=== PATIENT | male | born 1965 | race Two or more races ===

== ENCOUNTER 2025-03-20 09:37 | Emergency (ER) | payer SELFPAY ==
[~2025-03-20] VITALS: Ht 175.3 cm; Wt 102.0 kg
[2025-03-20 09:56] VITALS: PULSE 71; RESP 18; O2SAT 98
--- NOTE | 2025-03-20 10:10 | ED.PDOC ---
History of Present Illness HPI Comments 60-year-old male presents to the your with no prior medical history associated with a chief complaint high blood pressure. Patient reports that he worked at [employer] yesterday and was put into a department which she did not like for which he checked his blood pressure before shift and it was at 181 systolic and after shift there was at 198 systolic. Social history of tobacco use, occasional alcohol use, marijuana use. Denies chills, fever, N/V/D, SOB, CP. No other associated symptoms, modifiers, recent injuries or sick contacts present at this time. Chief Complaint: High Blood Pressure Time Seen by MD: 10:05 Primary Care Provider: NONE Reviewed Notes: Nurses Notes, Medications, Allergies Allergies: Coded Allergies: NO KNOWN ALLERGIES (Unverified , 03/20/25) Information Source: Patient Mode of Arrival: Ambulatory Severity: Moderate Timing: Hours Duration: Since onset, Hours Prehospital treatment: None Past Medical History PAST MEDICAL HISTORY: Denies Surgical History: Denies all surgeries Family History Family History: Reviewed,noncontributory to illness, Unknown Social History Smoker: Cigarettes Alcohol: Occasionally Drugs: Marijuana Lives In: Home Constitutional: reports: others (High blood pressure); denies: chills, diaphoresis, fatigue, fever, malaise, sweats, weakness EENTM: denies: blurred vision, double vision, ear bleeding, ear discharge, ear drainage, ear pain, ear ringing, eye pain, eye redness, hearing loss, mouth pain, mouth swelling, nasal discharge, nose bleeding, nose congestion, nose pain, photophobia, tearing, throat pain, throat swelling, voice changes, others Respiratory: denies: cough, hemoptysis, orthopnea, SOB at rest, shortness of breath, SOB with excertion, stridor, wheezing, others Cardiovascular: denies: chest pain, dizzy spells, diaphoresis, Dyspnea on exertion, edema, irregular heart beat, left arm pain, lightheadedness, palpitations, PND, syncope, others Gastrointestinal: denies: abdomen distended, abdominal pain, blood streaked bowels, constipated, diarrhea, dysphagia, difficulty swallowing, hematemesis, melena, nausea, poor appetite, poor fluid intake, rectal bleeding, rectal pain, vomiting, others Genitourinary: denies: burning, dysuria, flank pain, frequency, hematuria, incontinence, penile discharge, penile sore, pain, testicle pain, testicle swelling, urgency, others Neurological: denies: dizziness, fainting, headache, left sided numbness, left sided weakness, numbness, paresthesia, pre-existing deficit, right sided numbness, right sided weakness, seizure, speech problems, tingling, tremors, weakness, others Musculoskeletal: denies: back pain, gout, joint pain, joint swelling, muscle pain, muscle stiffness, neck pain, others Integumetry: denies: bruises, change in color, change in hair/nails, dryness, laceration, lesions, lumps, rash, wounds, others Allergic/Immunocompromised: denies: Difficulty Healing, Frequent Infections, Hives, Itching, others Hematologic/Lymphatic: denies: anemia, blood clots, easy bleeding, easy bruising, swollen glands, others Endocrine: denies: excessive hunger, excessive sweating, excessive thirst, excessive urination, flushing, intolerance to cold, intolerance to heat, unexplained weight gain, unexplained weight loss, others Psychiatric: denies: anxiety, bipolar disorder, depression, hopeless, panic disorder, schizophrenia, sleepless, suicidal, others All Other Systems: Reviewed and Negative Physical Exam General Appearance: Moderate Distress, Normal HEENT: Normal ENT Inspection, Pharynx Normal, TMs Normal Neck: Full Range of Motion, Non-Tender, Normal, Normal Inspection Respiratory: Chest Non-Tender, Lungs Clear, No Accessory Muscle Use, No Respiratory Distress, Normal Breath Sounds Cardiovascular: No Edema, No JVD, No Murmur, No Gallop, Normal Peripheral Pulses, Regular Rate/Rhythm Breast Exam: Deferred Gastrointestinal: No Organomegaly, Non Tender, No Pulsatile Mass, Normal Bowel Sounds, Soft Genitalia: Deferred Pelvic: Deferred Rectal: Deferred Extremities: No calf tenderness, Normal capillary refill, Normal inspection, Normal range of motion, Non-tender, No pedal edema Musculoskeletal : Apperance: Normal Neurologic: Alert, 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 Was a procedure done?: No Differential Dx Considerations may include: Anxiety X-Ray, Labs, Meds, VS Vital Signs Date Time Temp Pulse Resp B/P (MAP) Pulse Ox O2 Delivery O2 Flow Rate FiO2 03/20/25 11:17 98.7 75 16 159/107 (124) 98 98.7 03/20/25 11:17 75 17 97 Room Air 03/20/25 09:56 71 18 98 Room Air* 0 21 03/20/25 09:45 98.4 71 18 158/105 (122) 98 98.4 03/20/25 09:45 98.4 71 18 158/105 (122) 98 98.4 159/102 (121) Current Medications Medications (Trade) Dose Ordered Sig/Amanda Route Start Time Stop Time Status Last Admin Lorazepam (Ativan Tablet) 2 mg ONCE ONCE PO 03/20/25 10:15 03/20/25 10:16 DC 03/20/25 10:16 Patient alert. He has a anxiety. Job related. Blood pressure slightly elevated. Denies history of hypertension. Was given Ativan. Blood pressure continues to be elevated even after Ativan. Was given prescription of lisinopril. Explained to the patient on exercise diet. Was told to follow up with his primary care physician. Was told to come back if there is any problem. Time of 1ST Reevaluation: 10:35 Reevaluation 1ST: Improved Patient Education/Counseling: Diagnosis, Treatment, Prognosis Family Education/Counseling: No Family Present SEPSIS Sepsis Screen Date sepsis recognized/suspect: Mar 20, 2025 Time Sepsis recognized/suspect: 944 Recent Procedure: No On Antibiotic Therapy: No Respiratory Rate >20: No Heart Rate >90: No Temp<36 C (96.8 F) or >38.3 C: No SBP <90 or MAP <65 mmHG: No New Acute Mental Status Change: No Is the patient on CPAP, BIPAP,: No Vital Signs Date Time Temp Pulse Resp B/P (MAP) Pulse Ox O2 Delivery O2 Flow Rate FiO2 03/20/25 11:17 98.7 75 16 159/107 (124) 98 98.7 03/20/25 11:17 75 17 97 Room Air 03/20/25 09:56 71 18 98 Room Air* 0 21 03/20/25 09:45 98.4 71 18 158/105 (122) 98 98.4 03/20/25 09:45 98.4 71 18 158/105 (122) 98 98.4 159/102 (121) Medications Medications Dose Ordered Sig/Amanda Route Start Time Stop Time Status Last Admin Dose Admin Lorazepam 2 mg ONCE ONCE PO 03/20/25 10:15 03/20/25 10:16 DC 03/20/25 10:16 Departure 1 Departure Time of Disposition: 10:26 Impression: Primary Impression: HTN (hypertension) Qualified Codes: I10 - Essential (primary) hypertension Additional Impression: Anxiety Disposition: HOME / SELF CARE / HOMELESS Condition: Good e-Prescriptions Lisinopril (Lisinopril) 5 Mg Tab 5 MG PO BS for 5 Days, #5 TAB Prov: MARIUM FRYE MD 03/20/25 Discharged With: Self Critical Care Note Critical Care Time?: No Stability Stability form required: No Heart Score Heart Score: Heart Score Response (Comments) Value History N/A 0 EKG N/A 0 Age N/A 0 Risk Factors N/A 0 Troponin N/A 0 Total 0 I personally scribed for MARIUM FRYE MD ([email or web address]) on 03/20/25 at 10:10. Electronically submitted by Hernandez Pereyra ([email or web address]). MARIUM FRYE MD Mar 20, 2025 10:10
[2025-03-20] MEDS: LORazepam 0.5 MG TAB PO ONE (10:16)
[2025-03-20 11:17] VITALS: BP 159/107; PULSE 75; RESP 17; TEMP 98.7; O2SAT 97
[2025-03-20] MEDS ORDERED: LISI-275 PO (11:25)
== END 2025-03-20 12:15 | disposition home or self-care (01) ==
LOC: ER 09:37 → EDBD 09:37 → ER 12:15
DX: I10 Essential (primary) hypertension (principal); F41.9 Anxiety disorder, unspecified; F17.210 Nicotine dependence, cigarettes, uncomplicated; F12.90 Cannabis use, unspecified, uncomplicated